=== PATIENT | male | born 1955 | race Hispanic/Latino ===

== ENCOUNTER 2023-03-09 09:20 | Day surgery (SDC) | payer MEDICARE ==
[~2023-03-09] VITALS: Ht 167.6 cm; Wt 59.9 kg
[2023-03-09] VITALS (11 sets, daily range): BP systolic 92–126; BP diastolic 49–65; PULSE 70–87; RESP 14–20
[~2023-03-09 09:20] MED LIST: ACET325T51 PO; AMLO-257 PO; CALM120O TP; DOCU100C33 PO; FERS325 PO; HYDR-4153 PO; INSLAN SQ; INSU100V3 SQ; IPRA0.2S54 IH; LACT10SO5 PO; LIDO1ADH71 TP; MULT-1367 PO; ONDA-104 PO; POLY15DR29 OU; POLY17PO4 PO; SIME80TA12 PO; SODI650T PO; SUCR1TAB2 PO; TAMS-1 PO; [UNRECOGNIZED DRUG - CODE] TP
[2023-03-09] MEDS ORDERED: DEXTROSE 50%-WATER 50 ML DISP.SYRIN IV ONE (11:32)
[2023-03-09] MEDS ORDERED: PROPOFOL 10 MG/ML 20ML VIAL IV ONE (12:16)
== END 2023-03-09 14:00 | disposition home or self-care (01) ==
LOC: ENDO 09:20 → DAH 09:22 → ENDO 14:00 → DAH 14:00
PROVIDERS: ATTEND Internal Medicine Gastroenterology
DX: R10.13 Epigastric pain (principal); K29.51 Unspecified chronic gastritis with bleeding; R94.5 Abnormal results of liver function studies; K26.9 Duodenal ulcer, unspecified as acute or chronic, without hemorrhage or perforation; E11.9 Type 2 diabetes mellitus without complications; F32.A Depression, unspecified; F41.9 Anxiety disorder, unspecified; G61.0 Guillain-Barre syndrome; Z79.899 Other long term (current) drug therapy; Z79.01 Long term (current) use of anticoagulants; Z93.3 Colostomy status; Z93.0 Tracheostomy status
CPT/HCPCS: 82948 ×3; 43239; J7070; J2704; A4620; A4215 ×2; A4223; A7002; A4222; A4221; A4663; A4216; J7030; A4606; J3490

== ENCOUNTER 2023-06-07 06:49 | Day surgery (SDC) | payer MEDICARE ==
[~2023-06-07] VITALS: Ht 167.6 cm; Wt 64.4 kg
[2023-06-07] VITALS (11 sets, daily range): BP systolic 92–130; BP diastolic 51–70; PULSE 80–90; RESP 14–24
[~2023-06-07 06:49] MED LIST changes: -HYDR-4153 PO; +HYDR25TA67 PO
[2023-06-07] MEDS ORDERED: 0.9%NACL 1000ML 1,000 ML IV ONE (07:09)
[2023-06-07] MEDS ORDERED: PROPOFOL 10 MG/ML 20ML VIAL IV ONE ×2 (07:33→07:34)
[2023-06-07] MEDS ORDERED: OMEP40CA21 PO (07:48)
[2023-06-07] MEDS ORDERED: ATRO1DRO OP (07:48)
== END 2023-06-07 13:35 | disposition home or self-care (01) ==
LOC: DAH 06:49 → ENDO 06:49
PROVIDERS: ATTEND Surgery
DX: Z12.11 Encounter for screening for malignant neoplasm of colon (principal); K63.5 Polyp of colon; R10.13 Epigastric pain; I10 Essential (primary) hypertension; R94.5 Abnormal results of liver function studies; E11.9 Type 2 diabetes mellitus without complications; F41.9 Anxiety disorder, unspecified; G61.0 Guillain-Barre syndrome; F32.A Depression, unspecified; Z79.4 Long term (current) use of insulin; Z93.3 Colostomy status; Z93.0 Tracheostomy status; Z79.899 Other long term (current) drug therapy
CPT/HCPCS: 45381; 45380; J7030; J2704 ×2; A4620; A4215; J3490